=== PATIENT | female | born 1975 | race Caucasian/White ===

== ENCOUNTER 2016-12-06 20:00 | Outpatient (CLI) | payer OTHER | END 2016-12-06 20:01 | disposition home or self-care (01) | LOC: SLEEPLAB 20:00 | PROVIDERS: ATTEND Nurse Practitioner Family | DX: G47.33 Obstructive sleep apnea (adult) (pediatric) (principal); R53.83 Other fatigue; E66.9 Obesity, unspecified; F32.9 Major depressive disorder, single episode, unspecified; R06.83 Snoring | CPT/HCPCS: 95806 ==

== ENCOUNTER 2017-09-28 08:08 | Outpatient (CLI) | payer OTHER ==
--- NOTE | 2017-09-28 10:30 | CT ---
CT OF ABDOMEN AND PELVIS PERFORMED WITH ITNRAVENOUS CONTRAST ENHANCEMENT: HISTORY: Abdominal pain and diarrhea. Fever x 3 days. Elevated bilirubin. History of hysterectomy and edyta cystectomy. The lung bases are clear. The liver shows a suggestion of some possible fatty change. The spleen is within normal limits. The pancreas region is unremarkable and the gallbladder has been removed. Right and left adrenal glands and right and left kidneys are normal in size and appearance. There is no significant periaortic or mesenteric lymphadenopathy. CT OF PELVIS PERFORMED WITH ONTRAST ENHANCEMENT: The appendix is normal. There is no evidence of adenopathy, mass, or free fluid. Review of osseous structures shows no significant findings. IMPRESSION: 1. Postop cholecystectomy change. Suggestion of some fatty changes of the liver. 2. No acute abnormalities of the abdomen or pelvis. POS: BETTY
[2017-09-28] MEDS ORDERED: Iopamidol 370 76% 100 ML VIAL ONE (15:01)
== END 2017-09-28 08:09 | disposition home or self-care (01) ==
LOC: CT 08:08
PROVIDERS: ATTEND Nurse Practitioner Family
DX: K58.0 Irritable bowel syndrome with diarrhea (principal); R74.8 Abnormal levels of other serum enzymes; R10.9 Unspecified abdominal pain; E80.7 Disorder of bilirubin metabolism, unspecified; R11.0 Nausea; Z90.49 Acquired absence of other specified parts of digestive tract
CPT/HCPCS: 74177